=== PATIENT | male | born 1975 | race African-American/Black ===

== ENCOUNTER 2016-04-21 10:30 | Emergency (ER) | payer SELFPAY ==
[~2016-04-21] VITALS: Ht 165.1 cm; Wt 83.9 kg
[~2016-04-21 10:30] MED LIST: IBUPROFEN600 MG ORAL; NKM; NORCO 5-325 TA1 EACH ORAL
[2016-04-21] MEDS ORDERED: IBUPROFEN600 MG ORAL (11:45)
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
[2016-04-21 12:32] VITALS: BP_SYST 101; BP_SYST 95; BP_DIAS 67
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
== END 2016-04-21 11:58 | disposition home or self-care (01) ==
LOC: EMR 11:24
DX: S93.402A Sprain of unspecified ligament of left ankle, initial encounter (principal); X50.1XXA Overexertion from prolonged static or awkward postures, initial encounter; Y92.9 Unspecified place or not applicable
CPT/HCPCS: 99283

== ENCOUNTER 2016-05-10 09:07 | Emergency (ER) | payer SELFPAY ==
[~2016-05-10] VITALS: Ht 162.6 cm; Wt 79.4 kg
--- NOTE | 2016-05-10 09:45 | Diagnostic Imaging Report ---
Indication: Chest pain Technique: Single portable AP view of the chest. Findings: Comparison: None. The bones and extra pulmonary soft tissues, cardiomediastinal silhouette, pulmonary vasculature and parenchyma, and pleural surfaces are unremarkable. IMPRESSION: Negative portable AP chest.
[2016-05-10 09:58] LABS: BASOPHILS % (AUTO) 0.9 % (0.0-2.0); LYMPHOCYTES % (AUTO) 26.6 % (20.0-45.0); MEAN CORPUSCULAR HEMOGLOBIN 26.9 PG (27.0-31.0); MEAN CORPUSCULAR HGB CONC 33.3 G/DL (32.0-36.0); MEAN CORPUSCULAR VOLUME 81 FL (80-99); MEAN PLATELET VOLUME 6.7 FL (6.5-10.1); MONOCYTES % (AUTO) 7.9 % (1.0-10.0); NEUTROPHILS % (AUTO) 63.6 % (45.0-75.0); PLATELET COUNT 356 K/UL (150-450); RED BLOOD COUNT 5.37 M/UL (4.70-6.10); RED CELL DISTRIBUTION WIDTH 15.5 % (11.6-14.8); WHITE BLOOD COUNT 6.1 K/UL (4.8-10.8)
[2016-05-10 10:24] LABS: ALANINE AMINOTRANSFERASE 32 U/L (3-41); ALBUMIN/GLOBULIN RATIO 1.3 (1.0-2.7); ANION GAP 12 (5-15); ASPARTATE AMINO TRANSFERASE 26 U/L (5-40); CALCIUM 9.2 mg/dL (8.6-10.2); CARBON DIOXIDE 24 mEQ/L (20-30); CHLORIDE 102 mEQ/L (98-107); GLOMERULAR FILTRATION RATE > 60 mL/min (>60); HEMOLYSIS 3; POTASSIUM 4.3 mEQ/L (3.4-4.9); SODIUM 138 mEQ/L (135-145); TOTAL PROTEIN 7.1 g/dL (6.6-8.7)
[2016-05-10 10:25] LABS: TROPONIN I < 0.30 ng/mL (<=0.30)
[2016-05-10] MEDS ORDERED: Ketorolac 30mg Inj IV ONE (10:45)
[2016-05-10 11:01] LABS: CKMB 6.4 ng/mL (< 6.7)
[2016-05-10] MEDS ORDERED: IBUPROFEN600 MG ORAL (11:05)
[2016-05-10 11:30] VITALS: BP 143/78
[2016-05-10 11:45] VITALS: BP 143/78
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
--- NOTE | 2016-05-13 08:29 | Cardiology Report ---
APPROVED REPORT EKG Measurement Heart [id number] Normal sinus rhythm Nonspecific ST and T wave abnormality Abnormal ECG
== END 2016-05-10 11:45 | disposition home or self-care (01) ==
LOC: EMR 09:40
DX: R07.89 Other chest pain (principal)
CPT/HCPCS: 36415; 71010; 80053; 82550; 82553; 84484; 85025; 93005; 96374; 99283; J1885